=== PATIENT | male | born 1960 | race Caucasian/White ===

== ENCOUNTER → 2021-02-09 | Outpatient (CLI) | payer OTHER ==
[~2021-02-09] MED LIST: LOSA50TA5 PO; OMEP-221 PO; VITMTA PO
== END ==
LOC: M LABSMTC 09:41
PROVIDERS: ATTEND Anesthesiology
DX: Z01.812 Encounter for preprocedural laboratory examination (principal); Z20.822 Contact with and (suspected) exposure to COVID-19

== ENCOUNTER 2021-02-14 09:27 | Day surgery (SDC) | payer BC, OTHER ==
[~2021-02-14] VITALS: Ht 170.2 cm; Wt 99.2 kg
[~2021-02-14 09:27] MED LIST changes: +NS 1,000 ML IV ONE
[2021-02-14] MEDS ORDERED: propofoL 200 MG/20 ML VIAL As Ordered ONE (11:57)
[2021-02-14] MEDS ORDERED: LIDOCAINE 2% 100MG/5ML SDV (FOR ANES.) As Ordered ONE (11:57)
--- NOTE | 2021-02-14 12:06 | ROOR ---
Patient Name: Konrad Clements Procedure Date: 02/14/2021 11:51 AM Date of : 1960 Age: 60 Room: [facility] Gender: Male Note Status: Finalized Procedure: Upper GI endoscopy Indications: Suspected gastro-esophageal reflux disease Providers: Vic Gunter MD Referring MD: Nelson Mares Md Requesting Provider: Medicines: Monitored Anesthesia Care Complications: No immediate complications. Procedure: Pre-Anesthesia Assessment: - Prior to the procedure, a History and Physical was performed, and patient medications and allergies were reviewed. The patient is competent. The risks and benefits of the procedure and the sedation options and risks were discussed with the patient. All questions were answered and informed consent was obtained. Patient identification and proposed procedure were verified by the physician, the nurse and the anesthesiologist in the procedure room. Mental Status Examination: alert and oriented. Airway Examination: normal oropharyngeal airway and neck mobility. Respiratory Examination: clear to auscultation. CV Examination: normal. Prophylactic Antibiotics: The patient does not require prophylactic antibiotics. Prior Anticoagulants: The patient has taken no previous anticoagulant or antiplatelet agents. ASA Grade Assessment: II - A patient with mild systemic disease. After reviewing the risks and benefits, the patient was deemed in satisfactory condition to undergo the procedure. The anesthesia plan was to use monitored anesthesia care (MAC). Immediately prior to administration of medications, the patient was re-assessed for adequacy to receive sedatives. The heart rate, respiratory rate, oxygen saturations, blood pressure, adequacy of pulmonary ventilation, and response to care were monitored throughout the procedure. The physical status of the patient was re-assessed after the procedure. The Endoscope was introduced through the mouth, and advanced to the second part of duodenum. The upper GI endoscopy was accomplished without difficulty. The patient tolerated the procedure well. Findings: The examined esophagus was normal. The Z-line was regular and was found 41 cm from the incisors. Scattered and patchy moderate inflammation characterized by erythema and granularity was found in the gastric antrum. Biopsies were taken with a cold forceps for histology. Biopsies were taken with a cold forceps for Helicobacter pylori testing. Verification of patient identification for the specimen was done by the physician and nurse using the patient's name, date and medical record number. Estimated blood loss was minimal. The duodenal bulb and second portion of the duodenum were normal. A 10 mm non-bleeding diverticulum was found in the second portion of the duodenum. Impression: - Normal esophagus. - Z-line regular, 41 cm from the incisors. - Gastritis. Biopsied. - Normal duodenal bulb and second portion of the duodenum. - Non-bleeding duodenal diverticulum. Recommendation: - Patient has a contact number available for emergencies. The signs and symptoms of potential delayed complications were discussed with the patient. Return to normal activities tomorrow. Written discharge instructions were provided to the patient. - High fiber diet. - Continue present medications. - Await pathology results. - Follow an antireflux regimen. - Telephone GI clinic for pathology results in 2 weeks. - Return to primary care physician. Procedure Code(s): --- Professional --- 92241, Esophagogastroduodenoscopy, flexible, transoral; with biopsy, single or multiple Diagnosis Code(s): --- Professional --- K29.70, Gastritis, unspecified, without bleeding CPT copyright 2019 [employer]. All rights reserved. The codes documented in this report are preliminary and upon bunker worker review may be revised to meet current compliance requirements. Vic Gunter MD Vic Gunter MD 02/14/2021 12:06:09 PM Electronically signed by Vic Gunter MD Number of Addenda: 0 Note Initiated On: 02/14/2021 11:51 AM Estimated Blood Loss: Estimated blood loss was minimal.
[2021-02-14 12:30] VITALS: BP 141/79
== END 2021-02-14 12:36 | disposition home or self-care (01) ==
LOC: M OPP 09:27
PROVIDERS: ATTEND Internal Medicine Gastroenterology
DX: K29.70 Gastritis, unspecified, without bleeding (principal); K21.9 Gastro-esophageal reflux disease without esophagitis; F17.210 Nicotine dependence, cigarettes, uncomplicated; Z79.899 Other long term (current) drug therapy

== ENCOUNTER → 2022-08-29 | Outpatient (CLI) | payer BC, OTHER ==
[~2022-08-29] MED LIST changes: -NS 1,000 ML IV ONE; -OMEP-221 PO; +OMEP40CA5 PO
== END ==
LOC: M SOG 08:04
PROVIDERS: ATTEND Orthopaedic Surgery Adult Reconstructive Orthopaedic Surgery
DX: M91.11 Juvenile osteochondrosis of head of femur [Legg-Calve-Perthes], right leg (principal); M25.551 Pain in right hip

== ENCOUNTER → 2022-11-15 | Outpatient (CLI) | payer BC, OTHER ==
[~2022-11-15] MED LIST changes: +AMLO1TAB24 PO; +PANT40TA29 PO; +TADA5TAB PO
== END ==
LOC: M RAD 14:12
PROVIDERS: ATTEND Orthopaedic Surgery
DX: M16.31 Unilateral osteoarthritis resulting from hip dysplasia, right hip (principal)

== ENCOUNTER 2022-12-02 05:58 | Day surgery (SDC) | payer BC, OTHER ==
[2022-12-02] VITALS (20 sets, daily range): BP systolic 77–121; BP diastolic 43–73
[~2022-12-02] VITALS: Ht 167.6 cm; Wt 103.0 kg
[2022-12-02] MEDS ORDERED: ceFAZolin SOD 2 GM in IV 1 EA IV ONE (06:00)
[2022-12-02] MEDS ORDERED: ROPIVA 100MG/KETOR 15MG/EPINEPHRINE 0.3MG IN NS 50ML SYRINGE PA ONE (06:00)
[2022-12-02] MEDS ORDERED: oxyCODONE 5MG TAB PO ONE (06:00)
[2022-12-02] MEDS ORDERED: TRANEXAMIC ACID 100 MG/ML 10ML VIAL IV ONE (06:00)
[2022-12-02] MEDS ORDERED: LR 1,000 ML IV SCH ×2 (06:45→13:50)
[2022-12-02] MEDS ORDERED: MIDAZOLAM 5MG/ML 1ML VIAL As Ordered ONE (07:02)
[2022-12-02] MEDS ORDERED: fentaNYL 100 MCG/2 ML INJECTION As Ordered ONE (07:02)
[2022-12-02] MEDS ORDERED: propofoL 500 MG/50 ML VIAL As Ordered ONE (07:02)
[2022-12-02] MEDS ORDERED: propofoL 200 MG/20 ML VIAL As Ordered ONE (07:03)
[2022-12-02] MEDS ORDERED: ONDANSETRON 4MG 2ML VIAL As Ordered ONE (07:03)
[2022-12-02] MEDS ORDERED: LIDOCAINE 2% 100MG/5ML SDV (FOR ANES.) As Ordered ONE (07:04)
[2022-12-02] MEDS ORDERED: TRANEXAMIC ACID 100 MG/ML 10ML VIAL As Ordered ONE ×2 (07:12→07:13)
[2022-12-02] MEDS ORDERED: BUPIVACAINE/EPIN 0.25% 30ML VIAL As Ordered ONE (07:12)
[2022-12-02] MEDS ORDERED: HOME MED LIST COMPLETE! XX SCH (07:40)
[2022-12-02] MEDS ORDERED: ROCURONIUM BROMIDE 50MG/5ML VIAL As Ordered ONE ×2 (08:13→12:53)
[2022-12-02] MEDS ORDERED: ACETAMINOPHEN 1000MG 100ML IV BAG As Ordered ONE (08:35)
[2022-12-02] MEDS ORDERED: HYDROmorphone HCL 2MG/ML 1ML VIAL As Ordered ONE (08:51)
[2022-12-02] MEDS ORDERED: LABETALOL 100MG/20ML VIAL As Ordered ONE (09:14)
[2022-12-02] MEDS ORDERED: hydrALAZINE 20MG/ML 1ML VIAL As Ordered ONE (09:30)
[2022-12-02] MEDS ORDERED: PHENYLephrine 500MCG 5ML (100MCG/ML) SYRINGE As Ordered ONE ×2 (10:41→12:20)
[2022-12-02] MEDS ORDERED: ePHEDrine SULFATE 25 MG/5 ML(5MG/ML) SYRINGE As Ordered ONE (10:41)
[2022-12-02] MEDS ORDERED: ceFAZolin 2 GM/D5W 50 ML IV BAG As Ordered ONE (11:48)
[2022-12-02] MEDS ORDERED: VASOPRESSIN INJ 20UNITS/ML 1ML VIAL As Ordered ONE (12:46)
[2022-12-02] MEDS ORDERED: PHENYLEPHRINE 10MG/ML 1ML VIAL As Ordered ONE (13:11)
[2022-12-02] MEDS ORDERED: VANCOMYCIN 1000MG/20ML VIAL As Ordered ONE (13:15)
[2022-12-02] MEDS ORDERED: SUGAMMADEX SODIUM 500 MG/5 ML VIAL (BRIDION) As Ordered ONE (13:26)
[2022-12-02] MEDS ORDERED: fentaNYL 100 MCG/2 ML INJECTION IV PRN (13:50)
[2022-12-02] MEDS ORDERED: oxyCODONE 5MG TAB PO PRN ×2 (13:50→14:35)
[2022-12-02] MEDS ORDERED: ONDANSETRON 4MG 2ML VIAL IV PRN ×2 (13:50→14:35)
[2022-12-02] MEDS ORDERED: HYDROMORPHONE HCL 0.5 MG/ 0.5 ML SYRINGE IV PRN (13:50)
[2022-12-02] MEDS ORDERED: SENNA 8.6 MG TAB (SENOKOT) PO PRN (14:35)
[2022-12-02] MEDS: ceFAZolin SOD 2 GM in IV 1 EA IV SCH ×2 (16:21→23:17)
[2022-12-02] MEDS: NS 1,000 ML IV SCH (16:22)
[2022-12-02] MEDS: LR 1,000 ML IV SCH ×2 (16:22→23:50)
[2022-12-02] MEDS: oxyCODONE 5MG TAB PO PRN ×2 (18:18→23:19)
[2022-12-02] MEDS: ACETAMINOPHEN TAB 650MG DOSE (2X325MG) PO SCH ×2 (18:18→23:18)
[2022-12-02] MEDS: DOCUSATE SODIUM 100MG CAPSULE PO SCH (20:26)
[2022-12-02] MEDS: NAPROXEN 250 MG TAB PO SCH (20:31)
[2022-12-03 02:09] VITALS: BP 109/71
[2022-12-03] MEDS: ACETAMINOPHEN TAB 650MG DOSE (2X325MG) PO SCH ×4 (05:55→23:23)
[2022-12-03] MEDS: oxyCODONE 5MG TAB PO PRN ×4 (05:56→23:23)
[2022-12-03 06:34] LABS: HEMATOCRIT 31.2 % (42.0-52.0); HEMOGLOBIN 10.5 g/dl (13.5-17.5); MEAN CORPUSCULAR HEMOGLOBIN 30.5 pg (27.0-33.0); MEAN CORPUSCULAR HGB CONC 33.7 g/dl (32.0-36.5); MEAN CORPUSCULAR VOLUME 90.7 fl (80.0-96.0); PLATELET COUNT, AUTOMATED 192 10^3/uL (150-450); RED BLOOD COUNT 3.44 10^6/uL (4.30-6.10)
[2022-12-03 06:49] LABS: INR 1.09; PROTHROMBIN TIME 14.3 SECONDS (12.5-14.5)
[2022-12-03 06:59] VITALS: BP 113/71
[2022-12-03 07:02] LABS: ALBUMIN 3.3 G/DL (3.2-5.2); ALKALINE PHOSPHATASE 33 U/L (46-116); ALT/SGPT 63 U/L (7.0-40); AST/SGOT 210 U/L (<34); BILIRUBIN,TOTAL 0.5 MG/DL (0.3-1.2); BLOOD UREA NITROGEN 33 MG/DL (9-23); CALCIUM LEVEL 7.9 MG/DL (8.3-10.6); CARBON DIOXIDE LEVEL 25 MMOL/L (20-31); CHLORIDE LEVEL 101 MMOL/L (98-107); CREATININE FOR GFR 1.25 MG/DL (0.70-1.30); GLOMERULAR FILTRATION RATE > 60.0 (>49); GLUCOSE, FASTING 157 MG/DL (74-106); PHOSPHORUS LEVEL 4.1 MG/DL (2.4-5.1); SODIUM LEVEL 134 MMOL/L (136-145); TOTAL PROTEIN 5.4 G/DL (5.7-8.2)
[2022-12-03] MEDS: NAPROXEN 250 MG TAB PO SCH ×2 (09:35→19:53)
[2022-12-03] MEDS: DOCUSATE SODIUM 100MG CAPSULE PO SCH ×2 (09:35→19:53)
[2022-12-03] MEDS: ASCORBIC ACID 500 MG TAB PO SCH (09:36)
[2022-12-03] MEDS: FERROUS SULFATE 325MG TAB PO SCH (09:38)
[2022-12-03] MEDS: amLODIPine 5 MG TAB PO SCH (09:38)
[2022-12-03] MEDS ORDERED: XARE10TA PO (13:03)
[2022-12-03] MEDS ORDERED: OXYC1TAB23 PO (13:04)
[2022-12-03] MEDS: NS 1,000 ML IV SCH (14:25)
[2022-12-03] MEDS ORDERED: RIVAROXABAN 10MG TAB (XARELTO) PO SCH (18:00)
[2022-12-03 22:58] VITALS: BP 116/56
[2022-12-04] MEDS: ACETAMINOPHEN TAB 650MG DOSE (2X325MG) PO SCH (05:51)
[2022-12-04 05:53] VITALS: BP 127/66
[2022-12-04 06:39] LABS: HEMOGLOBIN 8.7 g/dl (13.5-17.5); MEAN CORPUSCULAR HEMOGLOBIN 30.6 pg (27.0-33.0); MEAN CORPUSCULAR HGB CONC 33.5 g/dl (32.0-36.5); MEAN CORPUSCULAR VOLUME 91.5 fl (80.0-96.0); PLATELET COUNT, AUTOMATED 156 10^3/uL (150-450); RED BLOOD COUNT 2.84 10^6/uL (4.30-6.10); WHITE BLOOD COUNT 6.2 10^3/uL (4.0-10.0)
[2022-12-04 06:50] LABS: INR 1.3; PROTHROMBIN TIME 16.4 SECONDS (12.5-14.5)
[2022-12-04] MEDS ORDERED: OMEPRAZOLE 20MG CAP PO SCH (07:00)
[2022-12-04 07:03] LABS: ALBUMIN 2.9 G/DL (3.2-5.2); ALKALINE PHOSPHATASE 40 U/L (46-116); ALT/SGPT 58 U/L (7.0-40); AST/SGOT 189 U/L (<34); BILIRUBIN,TOTAL 0.4 MG/DL (0.3-1.2); BLOOD UREA NITROGEN 25 MG/DL (9-23); CALCIUM LEVEL 8.1 MG/DL (8.3-10.6); CARBON DIOXIDE LEVEL 28 MMOL/L (20-31); CHLORIDE LEVEL 102 MMOL/L (98-107); CREATININE FOR GFR 0.99 MG/DL (0.70-1.30); GLOMERULAR FILTRATION RATE > 60.0 (>49); GLUCOSE, FASTING 136 MG/DL (74-106); POTASSIUM SERUM 3.7 MMOL/L (3.5-5.1); SODIUM LEVEL 136 MMOL/L (136-145); TOTAL PROTEIN 5.1 G/DL (5.7-8.2)
[2022-12-04] MEDS: DOCUSATE SODIUM 100MG CAPSULE PO SCH (08:18)
[2022-12-04] MEDS: ASCORBIC ACID 500 MG TAB PO SCH (08:18)
[2022-12-04] MEDS: FERROUS SULFATE 325MG TAB PO SCH (08:19)
[2022-12-04 08:21] VITALS: BP 121/63
[2022-12-04] MEDS: amLODIPine 5 MG TAB PO SCH (08:21)
[2022-12-04] MEDS: NAPROXEN 250 MG TAB PO SCH (08:22)
[2022-12-04] MEDS ORDERED: hydroCHLOROthiazide 12.5 MG CAPSULE PO SCH (09:00)
[2022-12-04] MEDS ORDERED: ENTER DRUG NAME HERE (PATIENT'S OWN MED) PO SCH (09:00)
[2022-12-04] MEDS ORDERED: LOSARTAN 50MG TABLET PO SCH (09:00)
[2022-12-04] MEDS ORDERED: TADALAFIL 5 MG PO SCH (09:00)
== END 2022-12-04 10:15 | disposition home or self-care (01) ==
LOC: M SDC 05:58 → M MS5PR 16:05 → M SDC 12-04 10:15
PROVIDERS: ATTEND Orthopaedic Surgery
DX: M16.31 Unilateral osteoarthritis resulting from hip dysplasia, right hip (principal); T84.091A Other mechanical complication of internal left hip prosthesis, initial encounter; I10 Essential (primary) hypertension; K21.9 Gastro-esophageal reflux disease without esophagitis; G47.33 Obstructive sleep apnea (adult) (pediatric); Z87.891 Personal history of nicotine dependence; Z79.899 Other long term (current) drug therapy
CPT/HCPCS: 27130; 36415; 72170; 76000; 80053; 80069; 82330; 82947; 84132; 84295; 85014; 85027; 85610; 86850; 86900; 86901; 86920; 88304; 88311; 96361; 96365; 96366; 97116; 97161; 97165; 97530; C1713; C1776; J0131; J0360; J0690; J1100; J1170; J2250; J2370; J2405; J3010; S0020; S2900

== ENCOUNTER → 2022-12-09 | Outpatient (CLI) | payer BC, OTHER ==
[~2022-12-09] MED LIST changes: +OXYC1TAB23 PO; +XARE10TA PO
== END ==
LOC: M SOG 08:13
PROVIDERS: ATTEND Orthopaedic Surgery
DX: Z47.1 Aftercare following joint replacement surgery (principal); Z96.641 Presence of right artificial hip joint; M16.12 Unilateral primary osteoarthritis, left hip; M47.816 Spondylosis without myelopathy or radiculopathy, lumbar region

== ENCOUNTER → 2022-12-19 | Outpatient (CLI) | payer BC, OTHER | LOC: M SOG 08:50 | PROVIDERS: ATTEND Orthopaedic Surgery | DX: Z47.1 Aftercare following joint replacement surgery (principal); Z96.641 Presence of right artificial hip joint ==

== ENCOUNTER → 2023-02-28 | Outpatient (CLI) | payer BC, OTHER | LOC: M SOG 07:59 | PROVIDERS: ATTEND Orthopaedic Surgery | DX: Z47.1 Aftercare following joint replacement surgery (principal); Z96.641 Presence of right artificial hip joint; M54.50 Low back pain, unspecified; M51.36 Other intervertebral disc degeneration, lumbar region ==

== ENCOUNTER → 2023-08-28 | Outpatient (CLI) | payer BC, OTHER | LOC: M SOG 07:54 | PROVIDERS: ATTEND Orthopaedic Surgery | DX: Z96.641 Presence of right artificial hip joint (principal) ==

== ENCOUNTER → 2023-12-08 | Outpatient (CLI) | payer BC, OTHER | LOC: M SOG 08:21 | PROVIDERS: ATTEND Orthopaedic Surgery | DX: Z96.641 Presence of right artificial hip joint (principal) ==

== ENCOUNTER → 2024-06-03 | Outpatient (CLI) | payer BC, OTHER | LOC: M SOG 07:23 | PROVIDERS: ATTEND Orthopaedic Surgery | DX: Z96.641 Presence of right artificial hip joint (principal); Z47.1 Aftercare following joint replacement surgery ==